=== PATIENT | male | born 1955 | race Caucasian/White ===

== ENCOUNTER 2025-01-07 08:47 | Outpatient (AMB) | payer MEDICARE, MEDICAID, SELFPAY ==
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
[2025-01-07 09:33] VITALS: BP 132/70; PULSE 67; RESP 16; O2SAT 98; BMI 34.5
--- OUTSIDE RECORDS SUMMARY | 2025-01-07 09:34 | XMS_ITS ---
Author Name [facility] [[email or web address]]P Organization Unknown History of Medication Use Medication Directions Dispensed Refills Start Date End Date Stat us cyclobenzaprine (FLEXERIL) 10 mg tablet Take 1 tablet (10 mg total) by mouth 3 (three) times a day if needed for muscle spasms. 09/26/2024 active tirzepatide (Mounjaro) 2.5 mg/0.5 mL injection Inject 0.5 mL (2.5 mg total) under the skin every 7 (seven) days. 09/23/2024 active amLODIPine (NORVASC) 2.5 mg tablet TAKE 1 TABLET BY MOUTH 1 TIME EACH DAY. 07/07/2024 active atorvastatin (LIPITOR) 10 mg tablet TAKE 1 TABLET BY MOUTH 1 TIME EACH DAY. 07/07/2024 active losartan (COZAAR) 100 mg tablet Take 1 tablet (100 mg total) by mouth 1 (one) time each day. 07/07/2024 active tamsulosin (FLOMAX) 0.4 mg 24 hr capsule TAKE 2 CAPSULES BY MOUTH DAILY. TAKE 30 MINS AFTER SAME MEAL EVERY DAY. 07/07/2024 active famotidine (PEPCID) 20 mg tablet TAKE 1 TABLET BY MOUTH 2 TIMES DAILY NEEDED FOR HEARTBURN. 03/31/2024 active ibuprofen (ADVIL,MOTRIN) 100 mg chewable tablet Take 1 Tablet by mouth every 6 hours as needed. active Problems Problem Status Onset Date Problem Type Date of Resolution Source Kidney stone active 2018-10-10 ProblemAct [facility] Allergic rhinitis active 2018-07-24 ProblemAct [facility] Pain of finger of right hand active 2024-05-13 ProblemAct [facility] BPH (benign prostatic hyperplasia) active 2018-10-10 ProblemAct [facility] Hypercholesteremia active 2018-07-24 ProblemAct [facility] CLL (chronic lymphocytic leukemia) (CMS/HCC V24, CMS/HCC V28) active 2024-09-28 ProblemAct [facility] Anxiety active 2018-07-24 ProblemAct [facility] Gastroesophageal reflux disease without esophagitis active 2022-10-05 ProblemAct [facility] Trigger ring finger of right hand active 2024-05-13 ProblemAct [facility] HTN (hypertension) active 2018-07-24 ProblemAct [facility] Elevated WBC count active 2022-04-22 ProblemAct [facility] 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 ([facility] V24, [facility] V28) active 2021-08-16 ProblemAct [facility] Bilateral renal cysts active 2018-11-13 ProblemAct [facility] SUZIE (obstructive sleep apnea) active 2018-07-24 ProblemAct [facility] Morbid obesity with BMI of 40.0-44.9, adult ([facility] V24, [facility] V28) active 2024-02-11 ProblemAct [facility] Immunizations Vaccine Date Source Lot Number Status Influenza trivalent, 0.5mL ( Fluad) 65yo and older 04/16/2024 [facility] [id number] completed Pneumococcal conjugate 20 va lent (Prevnar 20, PCV 20) 2mo and older 10/26/2022 [facility] [id number] comple marian Influenza trivalent, 0.5mL ( Fluad) 65yo and older 04/20/2022 [facility] [id number] completed Pneumococcal polysaccharide 23 valent (Pneumovax 23) 2yo and older 08/16/2021 [facility] [id number] com pleted Td Tetanus diptheria (Tdvax) 7yo and older 05/17/2016 [facility] completed Care Team Organization Name Specialty Phone Email Start Date End [facility]
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
--- OUTSIDE RECORDS SUMMARY | 2025-01-07 09:35 | XMS_ITS | Clinical Summary ---
Author Organization [facility] Address [address] [place] [address] Care Team Providers Care Sandstone Splitter Name Role Phone Unavailable Primary Care Provider Unavailabl e Social History Tobacco Use Types Packs/Day Years Used Date Smoking Tobacco: Never Assessed Sex and Gender Information Value Date Recorded Sex Assigned at Not on file Legal Sex Male 6:26 PM EST Gender Identity Not on file Sexual Orientation Not on file Plan of Treatment Health Maintenance Due Date Last Done Comments Advance Care Planning 1955 Hepatitis C Virus Screening 1955 DTaP/Tdap/Td Vaccines (1 - Tdap) 10/26/1975 Colonoscopy 2001 Pneumococcal Vaccines 50+ (1 of 1 - PCV) 2006 Zoster (Shingles) Vaccine (1 of 2) 2006 Influenza Vaccine 10/10/2024 COVID-19 Vaccine (1 - 2023-2 5 season) 2024 RSV Vaccine 50 years and old er and Patients (1 - 1-dose 75+ series) 10/26/2031 Hepatitis B Vaccines Aged Out No long er eligible based on patient's age to complete this topic Insurance MEDICAID OUT OF STATE [facility] , [facility] [address] [place] [address]
--- OUTSIDE RECORDS SUMMARY | 2025-01-07 09:35 | XMS_ITS | Clinical Summary ---
Author Organization [facility] [address] [facility] lding Address [address] [place] [address] Phone Care Team Providers Care Diamond Wheel Edger Name Role Phone Criselda Carlson MD Primary Care Provider [phone] Allergies No known active allergies Medications ibuprofen (ADVIL,MOTRIN) 100 mg chewable tablet Take 1 Tablet by mouth every 6 hours as needed. Active famotidine (PEPCID) 20 mg tablet TAKE 1 TABLET BY MOUTH 2 TIMES DAILY NEEDED FOR HEARTBURN. 180 tablet 3 5 Active cyclobenzaprin e (FLEXERIL) 10 mg tabletIndicati ons:Acute right-sided low back pain without sciatica Take 1 tablet (10 mg total) by mouth 3 (three) times a day if needed for muscle spasms. 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 30 tablet 5 Active amLODIPine (NORVASC) 2.5 mg tablet TAKE 1 TABLET BY MOUTH EVERY DAY 90 tablet 1 5 Active atorvastatin (LIPITOR) 10 mg tablet TAKE 1 TABLET BY MOUTH EVERY DAY 90 tablet 1 5 Active tamsulosin (FLOMAX) 0.4 mg 24 hr capsule TAKE 2 CAPSULES BY MOUTH DAILY. TAKE 30 MINS AFTER SAME MEAL EVERY DAY. 180 capsule 1 5 Active losartan (COZAAR) 100 mg tablet TAKE 1 TABLET BY MOUTH 1 TIME EACH DAY. 90 tablet 1 5 Active tamsulosin (FLOMAX) 0.4 mg 24 hr capsule TAKE 2 CAPSULES BY MOUTH DAILY. TAKE 30 MINS AFTER SAME MEAL EVERY DAY. 180 capsule 1 5 025 Discontinued amLODIPine (NORVASC) 2.5 mg tablet TAKE 1 TABLET BY MOUTH 1 TIME EACH DAY. 90 tablet 1 5 025 Discontinued atorvastatin (LIPITOR) 10 mg tablet TAKE 1 TABLET BY MOUTH 1 TIME EACH DAY. 90 tablet 1 5 025 Discontinued losartan (COZAAR) 100 mg tablet Take 1 tablet (100 mg total) by mouth 1 (one) time each day. 90 tablet 1 5 025 Discontinued Active Problems Problem Noted Date Diagnosed Date CLL (chronic lymphocytic kathy kemia) ([facility] V24, [facility] V28) 09/28/2024 Overview (09/28/2024): [facility] Pain of finger of right hand 05/13/2024 Trigger ring finger of right hand 05/13/2024 Morbid obesity with BMI of 4 0.0-44.9, adult ([facility] V24, [facility] V28) 02/11/2024 Gastroesophageal reflux disease without esophagi tis 10/05/2022 Elevated WBC count 04/22/2022 Overview (02/11/2024): 05/04 Hematology [facility]. CLL Type 2 diabetes mellitus wit h diabetic foot deformity ([facility] V24, 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 BPH (benign prostatic hyperplasia) 10/10/2018 Kidney stone 10/10/2018 Allergic rhinitis 07/24/2018 Anxiety 07/24/2018 HTN (hypertension) 07/24/2018 Hypercholesteremia 07/24/2018 SUZIE (obstructive sleep apnea) 07/24/2018 Overview (02/11/2024): No cpap Encounters Date Type Department Care Team Description 01/01/2025 [facility]phone [facility] [address] [place] [address] Criselda Carlson MD 11/07/2024 10:30 AM EDT Office [facility] [address] [place] [address] Jatin De Leon PA Acute left-sided low back pain without sciatica (Primary Dx) 11/06/2024 Telephone Adult Medicine [facility] [address] [place] [address] Criselda Carlson MD 10/20/[address] [address] Sania Lemus MD 10/20/2024 [facility]phone [facility] [address] [place] [address] Criselda Carlson MD 10/15/2024 10:30 AM EDT [facility] [address] [place] [address] Sahra Babb NP Primary hypertension (Primary Dx); 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 (CMS/HCC V24, CMS/HCC V28); Hypercholesteremia; CLL (chronic lymphocytic leukemia) (CMS/HCC V24, CMS/HCC V28); Thoracic back pain, unspecified back pain laterality, unspecified chronicity 10/07/2024 Telephone Adult Medicine [facility] [address] [place] [address] Criselda Carlson MD from Last 3 Months Immunizations Immunization Administration Dates Next Due Influenza trivalent, 0.5mL (Fluad) 65yo and olde r 04/16/2024,04/20/2022 Influenza trivalent, 0.5mL ( Fluzone High-dose) 65yo and older 04/20/2022 Pneumococcal conjugate 20 va lent (Prevnar 20, PCV 20) 2mo and older 10/26/2022 Pneumococcal polysaccharide 23 valent (Pneumovax 23) 2yo and older 08/16/2021 Td Tetanus diptheria (Tdvax) 7yo and older 05/17 Surgical History Surgery Date Site/Laterality Comments VASECTOMY PROCEDURE: DE VASECTOMY UNI/BI SPX W/POSTOP SEMEN EXAMS CHOLECYSTECTOMY -early PROCEDURE: HISTORICAL CHOLECYSTECTOMY COLONOSCOPY 07/20/2021 PROCEDURE: HISTORICAL COLONOSCOPY; COMMENT: tubular adenoma HERNIA REPAIR 01/20/2022 Bilateral PROCEDURE: LAPAROSCOPY, INGUINAL HERNIA REPAIR; COMMENT: Dr. Duckworth Medical History Medical History Date Comments HTN (hypertension) 07/24/2018 DX:HTN (hyper tension) Anxiety 07/24/2018 DX:Anxiety Hyperlipidemia 07/24/2018 DX:Hyperlipidemi a Allergic rhinitis 07/24/2018 DX:Allergic rh initis Severe obesity (BMI 35.0-35. 9 with comorbidity) ([facility] V24, [facility] V28) 07/24/2018 DX:Severe obes ity (BMI 35.0- 35.9 with comorbidity) ([facility]) SUZIE (obstructive sleep apnea) 07/24/2018 DX :SUZIE (obstructive sleep apnea) Esophageal reflux DX:Esophageal reflux Cough DX:Cough Straining with stools DX:Straini ng with stools Dysphagia DX:Dysphagia Family History Medical History Relation Name Comments Prostate cancer Father dx -age 60s Lung cancer Mother Diabetes, tobac co Other: DM, HTN Other siblings Relation Name Status Comments Brother 1 1/2 bro Alive Brother 2 12 bro Alive Brother 3 03/13 bro Alive Brother 4 03/13 bro Alive Father Mother Other siblings Alive Social History Tobacco Use Types Packs/Day Years Used Date Smoking Tobacco: Never Smokeless Tobacco: Never Tobacco Cessation:Counseling Given: Not Answered Alcohol Use Standard Drinks/Week Comments Yes 2 (1 standard drink = 0.6 oz pur e alcohol) Sex and Gender Information Value Date Recorded Sex Assigned at Male 04/29/2024 3:44 PM EST Legal Sex Male 5:49 PM EST Gender Identity Male 04/29/2024 3:44 PM EST Sexual Orientation Straight 04/29/2024 3: 44 PM EST Obstetrics History Last Filed Vital Signs Vital Sign Reading Time Taken Comments Blood Pressure 143/74 11/07/2024 10:11 AM EDT Pulse 55 11/07/2024 10:11 AM EDT Temperature 36.4 C (97.5 F) 11/07/2024 10:11 AM EDT Respiratory Rate 16 10/15/2024 9:25 AM EDT Oxygen Saturation 94% 05/26/2024 10:16 AM EDT Inhaled Oxygen Concentration - - Weight 104 kg (229 lb 6.4 oz) 11/07/2024 10:11 A M EDT Height 170.2 cm (5' 7 ) 11/07/2024 10:11 AM EDT Body Mass Index 35.93 11/07/2024 10:11 AM EDT Plan of Treatment Health Maintenance Due Date Last Done Comments Zoster Vaccines (1 of 2) 10/26/1975 RSV Immunization Adult Patients (1 - Risk 50-74 years 1-dose series) 2006 Falls Risk Assessment 02/18/2022 Medicare Annual Wellness Visit 02/18/2022 Social Influencers of Health Screening 02/18/2022 Depression Screening 03/12/2024 Diabetes: Annual Retina Eye Exam 08/23/2024 08/24/2023 COVID-19 Vaccine ( season) 2024 02/16/2021, 06/18/2020 Influenza Vaccine (#1) 2024 , 04/20/2022, 04/20/2022 Diabetes: Blood Sugar Control Test (HGBA1C) 03/29/2025 09/26/2024, 03/21/2024, 09/26/2023, Additional history exists Diabetes: Annual Foot Exam 04/16/2025 04/16/2024, Diabetes: Annual Urine Albumin-Creatinine Ratio (uACR) 09/26/2025 09/26/2024, 03/21/2024, 09/26/2023 Diabetes: Annual GFR (Glomerular Filtration Rate) 09/26/2025 09/26/2024, 05/26/2024, 03/21/2024, Additional history exists Hypertension/CHF/CAD Annual BMP Blood Test 09/26/2025 09/26/2024, 05/26/2024, 03/21/2024, Additional history exists DTaP,Tdap,and Td Vaccines (2 - Td or Tdap) 05/17/2026 05/17/2016 Colorectal Cancer Screening: Colonoscopy 07/20/2026 07/20/2021 Cholesterol Screening (Lipid Panel) 09/26/2029 09/26/2024, 03/21/2024, 09/26/2023, Additional history exists Pneumococcal Vaccine: 50+ Years Completed 10/26/2022, 08/16/2021 Hepatitis C Screening Completed 04/18/2023 HIB Vaccines Aged Out No longer eligi ble based on patient's age to complete this topic HPV Vaccines Aged Out No longer eligi ble based on patient's age to complete this topic Hepatitis A Vaccines Aged Out No long er eligible based on patient's age to complete this topic Hepatitis B Vaccines Aged Out No long er eligible based on patient's age to complete this topic IPV Vaccines Aged Out No longer eligi ble based on patient's age to complete this topic MMR Vaccines Aged Out No longer eligi ble based on patient's age to complete this topic Meningococcal ACWY Vaccine Aged Out N o longer eligible based on patient's age to complete this topic Meningococcal B Vaccine Aged Out No l onger eligible based on patient's age to complete this topic RSV Immunization Patients Under 20 months Aged Out No longer eligible based on patient's age to complete this topic Varicella Vaccines Aged Out No longer eligible based on patient's age to complete this topic Goals Goal Patient Goal Type Associated Problems [...] STRENGTH TO WEIGHTBEAR # 4 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 = WITH THE LEFT/ IMPROVED TO 52 # ON 06/11 Procedures Procedure Name Priority Date/Time Associated Diagnosis Comments MICROALBUMIN CREATININE URINE RATIO Routine 09/26/2024 9:52 AM EDT 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 (CMS/HCC V24, CMS/HCC V28) COMPREHENSIVE METABOLIC PANEL Routine 09/26/2024 9:47 AM EDT 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 (CMS/HCC V24, CMS/HCC V28) HEMOGLOBIN A1C Routine 09/26/2024 9:47 AM EDT 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) [facility] Microalb, Ur 5.6 0.0 - 29.0 mg/L LAB CHE[facility] Microalb/Creat Ratio 5 <30 mg/g creat LAB CHEMISTRY METHOD 09/26/2024 1:07 PM [facility] Urine Urine specimen obtained by clean catch procedure / Unknown Non-blood Collection / Unknown 09/26/2024 9:52 AM EDT 09/26/2024 9:52 AM EDT C Bucky Carlson MD LAB URINE ORDERABLES Final Res ult [facility] [address] [place] [address], [place] [phone] * (ABNORMAL) Lipid panel with reflex to direct LDL (09/26/2024 9:47 AM EDT) Cholesterol 96 0 - 200 mg/dL LAB CHEMISTRY METHOD 09/26/2024 12:06 PM [facility] Triglycerides 128 0 - 150 mg/dL LAB CHEMISTRY METHOD 09/26/2024 12:06 PM [facility] HDL 37(L) >=40 mg/dL LAB CHEMISTRY METHOD 09/26/2024 12:06 PM [facility] LDL Calculated 33 0 - 100 mg/dL LAB CHEMISTRY METHOD 09/26/2024 12:06 PM [facility] VLDL Cholesterol Keith 25.6 mg/dL LAB CHEMISTRY METHOD 09/26/2024 12:06 PM [facility] Non HDL Chol. (LDL+VLDL) 59 <145 mg/dL LAB CHEMISTRY METHOD 09/26/2024 12:06 PM [facility] Chol/HDL Ratio 2.6 0.0 - 4.4 LAB CHEMISTRY METHOD 09/26/2024 12:06 PM [facility] Blood Venous blood specimen / Unknown Venipuncture / Unknown 09/26/2024 9:47 AM EDT 09/26/2024 9:47 AM EDT us Criselda Carlson MD LAB BLOOD ORDERABLES Final Res ult Performing Organization Address City/[facility]/ZIP Co de Phone Number [facility] [address] [place] [address], [place] [phone] * Hemoglobin A1c (09/26/2024 9:47 AM EDT) Pathologist [facility] Hemoglobin A1C 6.2 <6.5 % LAB CHEMISTRY METHOD 09/26/2024 10:54 PM EDT [facility] Mean Bld Glu Estim. 131 mg/dL LAB CHEMISTRY METHOD 09/26/2024 10:54 PM EDT [facility] Blood Venous blood specimen / Unknown Venipuncture / Unknown 09/26/2024 9:47 AM EDT 09/26/2024 9:47 AM EDT us Criselda Carlson MD LAB BLOOD ORDERABLES Final Res ult Performing Organization Address [facility]/ZIP Co de Phone Number [facility] [address] [place] [address], [place] [phone] * (ABNORMAL) Comprehensive metabolic panel (09/26/2024 9:47 AM EDT) Pathologist [facility] Sodium 141 133 - 145 mmol/L LAB CHEMISTRY METHOD 09/26/2024 12:06 PM EDT [facility] Potassium 4.0 3.5 - 5.5 mmol/L LAB CHEMISTRY METHOD 09/26/2024 12:06 PM EDT [facility] Chloride 106 96 - 110 mmol/L LAB CHEMISTRY METHOD 09/26/2024 12:06 PM EDT [facility] CO2 31 21 - 32 mmol/L LAB CHEMISTRY METHOD 09/26/2024 12:06 PM EDT [facility] Anion Gap 4 3 - 11 LAB CHEMISTRY METHOD 09/26/2024 12:06 PM EDT [facility] Glucose 108(H) 70 - 100 mg/dL LAB CHEMISTRY METHOD 09/26/2024 12:06 PM [facility] BUN 14 5 - 25 mg/dL LAB CHEMISTRY METHOD 09/26/2024 12:06 PM [facility] Creatinine 0.99 0.70 - 1.30 mg/dL LAB CHEMISTRY METHOD 09/26/2024 12:06 PM [facility] eGFR 83 >=60 mL/min/1. 73m2 LAB CHEMISTRY METHOD 09/26/2024 12:06 PM [facility] Comment:Calculation based on the Chronic Kidney Disease Epidemiology Collaboration (CKD-EPI) equation refit without adjustment for race. BUN/Creatinine Ratio 14.1 LAB CHEMISTRY METHOD 09/26/2024 12:06 PM [facility] Calcium 9.3 8.5 - 10.5 mg/dL LAB CHEMISTRY METHOD 09/26/2024 12:06 PM [facility] AST (SGOT) 22 10 - 42 unit/L LAB CHEMISTRY METHOD 09/26/2024 12:06 PM [facility] ALT (SGPT) 43 10 - 60 unit/L LAB CHEMISTRY METHOD 09/26/2024 12:06 PM [facility] Alkaline Phosphatase 80 42 - 121 unit/L LAB CHEMISTRY METHOD 09/26/2024 12:06 PM [facility] Total Protein 6.5 6.0 - 8.0 g/dL LAB CHEMISTRY METHOD 09/26/2024 12:06 PM [facility] Albumin 3.9 3.2 - 5.0 g/dL LAB CHEMISTRY METHOD 09/26/2024 12:06 PM [facility] Total Bilirubin 0.8 0.0 - 1.4 mg/dL LAB CHEMISTRY METHOD 09/26/2024 12:06 PM [facility] Blood Venous blood specimen / Unknown Venipuncture / Unknown 09/26/2024 9:47 AM EDT 09/26/2024 9:47 AM EDT C Bucky Carlson MD LAB BLOOD ORDERABLES Final Res ult [facility] ([facility]) [facility] [address] [place] [address], [place] [phone] * Diabetes Foot Exam (10/11/2023) Pathologist [facility] Diabetes: Annual Foot Exam abstracted [facility] Provider HEALTH MAINTENANCE Final Result * Diabetes Eye Exam (08/24/2023) [facility] Diabetes: Annual Retina Eye Exam abstracted [facility] Provider HEALTH MAINTENANCE Final Result * Hepatitis C Screening (04/18/2023) Pathologist [facility] Hepatitis C Screening abstracted Result [facility] Provider HEALTH MAINTENANCE Final Result * Colonoscopy (07/20/2021) Pathologist [facility] Colonoscopy abstracted, no interpretation Anatomical Region Laterality Modality Other Result [facility] Provider HEALTH MAINTENANCE Final Result from Last 3 Months or Most Recently Relevant to Health Maintenance Insurance [place] Care Teams Diamond Wheel Edger Relationship Specialty Start Date End Date Crisedla Carlson MD [address] [place] [phone] PCP - General Internal Medicine 06/22/20
--- OUTSIDE RECORDS SUMMARY | 2025-01-07 09:35 | XMS_ITS | Encounter Summary ---
Author Organization [facility] Address [address] [place] [address] Care Team Providers Care Ribbing Machine Operator Name Role Phone Unavailable Primary Care Provider Unavailabl e Encounter Details Date Type Department Care Team (Late st Contact Info) Description 02/28/2020 Lab Requisition [place] [facility] [address] [place] [phone] Jatin Torrez PA-C [address] [place] [phone] Encounter for laboratory testing for COVID-19 virus Social History Tobacco Use Types Packs/Day Years Used Date Smoking Tobacco: Never Assessed Sex and Gender Information Value Date Recorded Sex Assigned at Not on file Legal Sex Male 6:26 PM EST Gender Identity Not on file Sexual Orientation Not on file documented as of this encounter Plan of Treatment Not on file documented as of this encounter Procedures Procedure Name Priority Date/Time Associated Diagnosis Comments COVID-19 (SARS-COV-2) - [facility] Routine 02/28/2020 11:19 AM EST Encounter for laboratory testing for COVID-19 virus [ICD-10-CM] documented in this encounter Results * COVID-19 (SARS-COV-2) ([facility]) (02/28/2020 11:19 AM EST) COVID-19 RT-PCR NOT-DETEC TOLU Not-Detec tolu 03/02/2020 5:06 PM EST [facility] Comment:Interpretation: The viral RNA was not detected, making the COVID-19 diagnosis less likely. Clinical correlation is highly recommended.Final report signed by Maurisio Wilson, Ph.D., Laboratory DirectorTests performed at [facility] Nasopharyngeal swab / Unknown 02/28/2020 11:19 AM EST 02/28/2020 11:19 AM EST Narrative DILCIAEvelyn RIBEIRO Akiko YOHAN - 03/02/2020 5:06 PM EST Performed by [facility] [address] [place] [address], CLIA# [id number] and [place] License# [id number] Jatin Torrez PA-C MICROBIOLOGY - GENERAL OR DERABLES Final Result DILCIAEvelyn ALMANZAR documented in this encounter Visit Diagnoses Diagnosis Encounter for laboratory testing for COVID-19 virus documented in this encounter
--- OUTSIDE RECORDS SUMMARY | 2025-01-07 09:35 | XMS_ITS | Encounter Summary ---
Author Organization [facility] Address [address] [place] [address] Care Team Providers Care Ambulance Assistant Name Role Phone Criselda Carlson MD Primary Care Provider [phone] Reason for Visit * Reason Onset Date Comments Referral 10/07/2024 Chest Pain Encounter Details Date Type Department Care Team ([facility] st Contact Info) Description 10/07/2024 Telephone Adult Medicine [facility] [address] [place] [address] Criselda Carlson MD [address] [place] [address] Social History Tobacco Use Types Packs/Day Years [...] as of this encounter Progress Notes * Kim Rosa RN - 10/23/2024 9:19 AM EDT Spoke with patient, states he is not having any chest pain and does not need this referral * Criselda Carlson MD - 10/09/2024 12:10 PM EDT Please triage. Cardiac rehab would be an odd referral for chest plain . The place he is actually going is for physical therapy not cardiac rehab. I suspect related to his recent visit with [facility] for back pain? Please review this and pend the appropriate referrals to the appropriate person. If for some reason he is truly looking for cardiac rehab, he would need to be seen. * Adela Gomez - 10/07/2024 10:11 AM EDT Referral Request: What insurance does the patient have today? BCBS Medicare Advantage Referrals cannot be processed if the insurance is not accurate. If the insurance listed above in red is NO BILLING INFORMATION FOUND FOR THIS ENCOUTNER The patients correct insurance must be obtained and registered in [facility] or their referral can not be processed. Who is calling to request this referral? Incoming fax If the caller is not the patient, what is their name? Hansel Allen Ask the patient WHO referred them to this specialty: Patient was referred by Dr. Carlson FIRST and LAST NAME of SPECIALIST PATIENT is seeing: Process [facility] ( NPI # [id number]) What specialty is this? PT DIAGNOSIS Patient is being seen for (Not a body part or a procedure): Chest Pain Have you seen this SPECIALIST for this PROBLEM/DX before? If YES, when? No Have you checked REVIEW or the APPT DESK to see if this referral has already been done or has visits left? 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
== END 2025-01-07 10:14 | disposition home or self-care (01) ==
PROVIDERS: PCP Pediatrics; Visit Provider Nurse Practitioner
DX: R53.1 Weakness (principal); R29.2 Abnormal reflex
CPT/HCPCS: 99204

== ENCOUNTER 2025-01-07 08:47 | Outpatient (REF) | payer MEDICARE, MEDICAID, SELFPAY ==
[2025-01-07 12:45] LABS: Vitamin B12 652 pg/mL (200-900)
[2025-01-08 07:08] LABS: Lyme Blot 9.93 index
[2025-01-08 15:09] LABS: Lyme Abs Screen POSITIVE
[2025-01-08 16:39] LABS: 39KD (IgG) Band REACTIVE; 41KD (IgG) Band REACTIVE; Lyme IgG Blot Interp POSITIVE (NEGATIVE); Lyme IgM Blot Interp NEGATIVE (NEGATIVE)
[2025-01-10 23:49] LABS: Arsenic, Blood <3 mcg/L (<23); Lead, Blood 1.1 mcg/dL (<3.5); Mercury, Blood <4 mcg/L (<=10)
== END 2025-01-07 08:48 | disposition home or self-care (01) ==
LOC: HO.LAB 08:47
PROVIDERS: PCP Pediatrics; Visit Provider Nurse Practitioner
DX: R53.1 Weakness (principal); R29.2 Abnormal reflex; Z13.1 Encounter for screening for diabetes mellitus; Z13.84 Encounter for screening for dental disorders
CPT/HCPCS: 36415; 82175; 82607; 82784; 83036; 83655; 83825; 83921; 86334; 86617; 86618; 99202